=== PATIENT | male | born 2000 | race Caucasian/White ===

== ENCOUNTER → 2020-09-11 | Outpatient (CLI) | payer BC ==
[~2020-09-11] MED LIST: ACHD5005 PO; METH20TA36 PO
--- NOTE | 2020-09-11 14:16 | Diagnostic Imaging Report ---
PROCEDURE: CT maxillofacial without contrast. TECHNIQUE: Multiple contiguous axial images were obtained through the facial bones without the use of intravenous contrast. Auto Exposure Controls were utilized during the CT exam to meet ALARA standards for radiation dose reduction. INDICATION: Facial injuries. FINDINGS: There is mildly angulated and mildly displaced fracture involving the left nasal bone with probable nondisplaced right nasal bone fracture. No other definite fracture or malalignment is identified. Temporomandibular joints are intact. There is no paranasal sinus air-fluid level. Globes are intact and there is no evidence of retrobulbar hematoma. Mastoid air cells are clear. IMPRESSION: Nasal bone fractures with mild displacement on the left. Otherwise, no acute maxillofacial abnormality is identified. Dictated by: Dictated on workstation # [id number]
--- NOTE | 2020-09-11 14:16 | Diagnostic Imaging Report ---
PROCEDURE: CT cervical spine without contrast. TECHNIQUE: Multiple contiguous axial images were obtained through the cervical spine without the use of intravenous contrast. Sagittal and coronal reformations were then performed. Auto Exposure Controls were utilized during the CT exam to meet ALARA standards for radiation dose reduction. INDICATION: Facial injuries CT CERVICAL SPINE: Multiple contiguous axial CT images of the cervical spine were obtained with sagittal and coronal reformatted images produced. FINDINGS: There is loss of normal cervical lordosis. Vertebral body heights and disc spaces are maintained. Prevertebral soft tissues are unremarkable, and there is no evidence of paraspinous hematoma. IMPRESSION: Loss of normal cervical lordosis which may be due to positioning or muscle spasm. There is, otherwise, no CT evidence of acute cervical spinal abnormality. Dictated by: Dictated on workstation # [id number]
== END ==
LOC: RAD FS 13:35
PROVIDERS: ATTEND Nurse Practitioner Family
DX: S02.2XXA Fracture of nasal bones, initial encounter for closed fracture (principal); X58.XXXA Exposure to other specified factors, initial encounter
CPT/HCPCS: 70486; 72125

== ENCOUNTER 2020-09-12 05:39 | Outpatient (RCR) | payer BC ==
[~2020-09-12] VITALS: Ht 180.3 cm; Wt 84.1 kg
[2020-09-12] MEDS ORDERED: METH20TA36 PO (09:55)
[2020-09-13] MEDS ORDERED: ACHD5005 PO (07:58)
== END 2020-09-12 10:23 | disposition home or self-care (01) ==
LOC: PREOP 05:39
PROVIDERS: ATTEND Otolaryngology Otolaryngology/Facial Plastic Surgery
DX: Z01.818 Encounter for other preprocedural examination (principal)

== ENCOUNTER 2020-09-13 05:57 | Day surgery (SDC) | payer BC ==
[~2020-09-13] VITALS: Ht 180 cm; Wt 84.1 kg
[2020-09-13] VITALS (10 sets, daily range): BP systolic 103–132; BP diastolic 53–71
[~2020-09-13 05:57] MED LIST changes: -ACHD5005 PO
[2020-09-13] MEDS ORDERED: LACTATED RINGERS 1,000 ML IV PRN (06:30)
[2020-09-13] MEDS ORDERED: fentaNYL INJECTION 100 MCG/2 ML AMP ONE (06:40)
[2020-09-13] MEDS ORDERED: MIDAZOLAM 2 MG/2 ML (VERSED) VIAL ONE (06:40)
[2020-09-13] MEDS ORDERED: proPOfol 200 MG/20 ML (DIPRIVAN) VIAL IV ONE (06:40)
[2020-09-13] MEDS ORDERED: LIDOCAINE PF 2% 5 ML (XYLOCAINE) VIAL ONE (06:40)
[2020-09-13] MEDS ORDERED: ONDANSETRON 4 MG/2 ML (SDV) Z0FRAN ONE (06:40)
[2020-09-13] MEDS ORDERED: SEVOFLURANE (ULTANE) 15 ML INHAL SOLN ONE (06:44)
[2020-09-13] MEDS ORDERED: COCAINE HCL 4% 2 ML SYR ONE (06:46)
[2020-09-13] MEDS ORDERED: MUPIROCIN 2% OINT 22 GM (BACTROBAN) TUBE ONE (06:47)
[2020-09-13] MEDS ORDERED: LIDOCAINE/EPI 1%-1:200,000 (XYLOCAINE) 10 ML VIAL ONE (06:47)
[2020-09-13] MEDS ORDERED: PHENYLEPHRINE 0.5% NASAL SPR (NEO-SYNEPHRINE) REG ONE (06:47)
--- NOTE | 2020-09-13 06:58 | Progress Note-Pre Operative ---
Pre-Operative Progress Note H&P Reviewed The H&P was reviewed, patient examined and no changes noted. Date Seen by Provider: Sep 13, 2020 Time Seen by Provider: 06:30 Date H&P Reviewed: Sep 13, 2020 Time H&P Reviewed: 06:30 Pre-Operative Diagnosis: Displaced Nasal Fracture JAD FIORE MD Sep 13, 2020 06:57
[2020-09-13] MEDS ORDERED: ONDANSETRON 4 MG/2 ML (SDV) Z0FRAN IVP PRN (07:30)
[2020-09-13] MEDS ORDERED: fentaNYL INJECTION 100 MCG/2 ML AMP IVP ONE (07:30)
[2020-09-13] MEDS ORDERED: morphine INJ 10 MG/ML 1ML (SYR OR VIAL) IVP ONE (07:30)
--- NOTE | 2020-09-13 07:32 | Progress Note-Post Operative ---
Post-Operative Progess Note Surgeon (s)/Senior Solutions Consultant (s) Surgeon JAD FIORE MD Senior Solutions Consultant n/a Pre-Operative Diagnosis Displaced Nasal Fracture Post-Operative Diagnosis same Post-Op Procedure Note Date of Procedure: Sep 13, 2020 Name of Procedure Performed: Closed Reduction of Nasal Fracture Description & Findings Description and Findings: n/a Anesthesia Type lma Estimated Blood Loss minimal Packing none. Specimen(s) collected/removed none JAD FIORE MD Sep 13, 2020 07:32
[2020-09-13] MEDS ORDERED: HYDROcodone/APAP 5 MG/325 MG (LORTAB) TAB PO PRN (07:45)
[2020-09-13] MEDS ORDERED: ACETAMINOPHEN 325 MG TABLET PO PRN (07:45)
[2020-09-13] MEDS ORDERED: ACHD5005 PO (07:58)
--- NOTE | 2020-09-13 08:31 | Anesthesia-General Post-Op ---
General Patient Condition Mental Status/LOC: Same as Preop Cardiovascular: Satisfactory Nausea/Vomiting: Absent Respiratory: Satisfactory Pain: Controlled Complications: Absent Post Op Complications Complications None Follow Up Care/Instructions Patient Instructions None needed. Anesthesia/Patient Condition Patient Condition Patient is doing well, no complaints, stable vital signs, no apparent adverse anesthesia problems. No complications reported per nursing. BRYN EATON CRNA Sep 13, 2020 08:31
== END 2020-09-13 09:15 | disposition home or self-care (01) ==
LOC: SDC 05:57
PROVIDERS: ATTEND Otolaryngology Otolaryngology/Facial Plastic Surgery
DX: S02.2XXA Fracture of nasal bones, initial encounter for closed fracture (principal); Z20.822 Contact with and (suspected) exposure to COVID-19; Z79.1 Long term (current) use of non-steroidal anti-inflammatories (NSAID); Z79.899 Other long term (current) drug therapy; Z83.3 Family history of diabetes mellitus; Y04.2XXA Assault by strike against or bumped into by another person, initial encounter
CPT/HCPCS: 21320; 87081; U0002; 87635

== ENCOUNTER 2021-12-09 01:13 | Observation (INO) | payer BC ==
[~2021-12-09] VITALS: Ht 180 cm; Wt 91.4 kg
[~2021-12-09 01:13] MED LIST changes: +ACHD5005 PO
[2021-12-09] MEDS ORDERED: CHARCOAL/AQUEOUS 50 GM/240 ML BTL PO STA (01:32)
[2021-12-09] MEDS ORDERED: NS IV 1000 ML 1,000 ML IV STA (01:32)
--- NOTE | 2021-12-09 01:38 | ED General ---
General Chief Complaint: Overdose Stated Complaint: DRUG OVERDOSE Nursing Triage Note: pt repots taking his bottle of concert 54mg on accident. reports he belived the bottle had his vitamins in it and he was in the dark when he took the medication. reports there were between 10-20 pills of the 54mg concerta in the bottle. denies any symptoms at this time. reports they were taken just minutes before arrival as he rushed in as soon as he realized. Source of Information: Patient, Other (girlfriend) History of Present Illness Date Seen by Provider: December 09, 2021 Time Seen by Provider: 01:18 Initial Comments 21-year-old male presenting with complaints of an accidental overdose. He states that he was camping with his girlfriend and it was dark out. He normally at night takes a bottle of vitamins however tonight he grabbed a bottle of Co ncerta by accident. After he had taken them he realized that he had taken the wrong pills. He became very anxious and worried and upset about it. He tried to make himself throw up and they immediately started driving here to the emergency department. He took the pills around 1 AM. He thinks he took from 10-20 of the 54 mg Concerta pills. He adamantly denies any suicidal ideation or suicide attempt. His girlfriend is with him and states that he does take a bottle of vitamins every night and it was pitch black outside so they could not see which bottle of pills he was getting. Timing/Duration: 1/2 Hour Severity: Mild Associated Systoms: No Chest Pain, No Cough, No Diaphoresis, No Fever/Chills, No Headaches, No Loss of Appetite, No Malaise, No Nausea/Vomiting, No Rash, No Seizure, No Shortness of Air, No Syncope, No Weakness Allergies and Home Medications Allergies Coded Allergies: No Known Drug Allergies (Unverified , 09/12/20) Patient Home Medication List Home Medication List Reviewed: Yes Methylphenidate HCl (Concerta) 54 Mg Tab.er.24, 54 MG PO DAILY, (Reported) Entered as Reported by: VIRGINIA RODGERS on 12/09/21 0149 Last Action: Edited Discontinued Medications Hydrocodone/Acetaminophen (Hydrocodone-Acetamin 5-325 mg) 1 Each Tablet, 1-2 TAB PO Q4H PRN for PAIN-MODERATE (5-7) Discontinued Reason: Referral/FU Appt-Addtl Prescribed by: CARLYLE TURNER on 09/13/20 0758 Last Action: Discontinued Methylphenidate HCl (Methylphenidate ER) Unknown Strength Tablet.er, 1 TAB PO DAILY, (Reported) Discontinued Reason: Referral/FU Appt-Addtl Entered as Reported by: LUIS CARLOS PERSON on 09/12/20 0955 Last Action: Discontinued Review of Systems Review of Systems Constitutional: No chills, No fever EENTM: no symptoms reported Respiratory: no symptoms reported Cardiovascular: no symptoms reported Gastrointestinal: no symptoms reported Genitourinary: no symptoms reported Musculoskeletal: no symptoms reported Skin: no symptoms reported Psychiatric/Neurological: Anxiety (worried about taking the pills) Hematologic/Lymphatic: No Symptoms Reported Immunological/Allergic: no symptoms reported Past Htbltnn-Rqafei-Wnyjun Hx Patient Social History Tobacco Use?: No Substance use?: No Alcohol Use?: Yes Alcohol Frequency: Once in a while Immunizations Up To Date Influenza Vaccine Up-to-Date: No; Not Current First/Initial COVID19 Vaccinat: unknown date Second COVID19 Vaccination Ariel: unknown date COVID19 Vaccine Community Advocate: [employer] Seasonal Allergies Seasonal Allergies: No Past Medical History Surgery/Hospitalization HX: ADHD Surgeries: No Respiratory: No Cardiac: No Neurological: No Genitourinary: No Gastrointestinal: No Musculoskeletal: Yes Fractures Endocrine: No HEENT: Yes (nasal fx) Cancer: No Psychosocial: No Integumentary: No Blood Disorders: No Physical Exam Vital Signs Vital Signs - First Documented 12/09/21 01:28 Temp 36.4 Pulse 78 Resp 18 B/P (MAP) 155/85 (108) Pulse Ox 99 O2 Delivery Room Air Capillary Refill : Height, Weight, BMI Height: '" Weight: lbs. oz. kg; 28.00 BMI Method: General Appearance: WD/WN, Anxious HEENT: PERRL/EOMI, Pharynx Normal Neck: Full Range of Motion, Normal Inspection, Non Tender, Supple Respiratory: Chest Non Tender, Lungs Clear, Normal Breath Sounds, No Accessory Muscle Use, No Respiratory Distress Cardiovascular: Regular Rate, Rhythm, No Edema, No Gallop, No JVD, No Murmur, Normal Peripheral Pulses Gastrointestinal: Normal Bowel Sounds, No Pulsatile Mass, Non Tender, Soft Rectal: Deferred Extremity: Normal Capillary Refill, Normal Inspection, No Calf Tenderness, No Pedal Edema Neurologic/Psychiatric: Alert, Oriented x3, manager maritime II-XII Norm as Tested, Other (anxious) Skin: Normal Color, Warm/Dry Progress/Results/Core Measures Suspected Sepsis SIRS Temperature: Pulse: 78 Respiratory Rate: 18 Laboratory Tests 12/09/21 01:28: White Blood Count 11.2H Blood Pressure 155 /85 Mean: 108 Laboratory Tests 12/09/21 01:28: Creatinine 1.30, Platelet Count 301, Total Bilirubin 0.4 Results/Orders Lab Results Laboratory Tests Test 12/09/21 01:28 12/09/21 01:30 Range/Units White Blood Count 11.2 H 4.3-11.0 10^3/uL Red Blood Count 5.04 4.30-5.52 10^6/uL Hemoglobin 15.5 13.3-17.7 g/dL Hematocrit 45 40-54 % Mean Corpuscular Volume 89 80-99 fL Mean Corpuscular Hemoglobin 31 25-34 pg Mean Corpuscular Hemoglobin Concent 35 32-36 g/dL Red Cell Distribution Width 13.4 10.0-14.5 % Platelet Count 301 130-400 10^3/uL Mean Platelet Volume 11.3 9.0-12.2 fL Immature Granulocyte % (Auto) 0 % Neutrophils (%) (Auto) 52 42-75 % Lymphocytes (%) (Auto) 37 12-44 % Monocytes (%) (Auto) 7 0-12 % Eosinophils (%) (Auto) 4 0-10 % Basophils (%) (Auto) 1 0-10 % Neutrophils # (Auto) 5.8 1.8-7.8 10^3/uL Lymphocytes # (Auto) 4.1 H 1.0-4.0 10^3/uL Monocytes # (Auto) 0.8 0.0-1.0 10^3/uL Eosinophils # (Auto) 0.4 H 0.0-0.3 10^3/uL Basophils # (Auto) 0.1 0.0-0.1 10^3/uL Immature Granulocyte # (Auto) 0.0 0.0-0.1 10^3/uL Sodium Level 139 135-145 MMOL/L Potassium Level 3.3 L 3.6-5.0 MMOL/L Chloride Level 102 98-107 MMOL/L Carbon Dioxide Level 25 21-32 MMOL/L Anion Gap 12 5-14 MMOL/L Blood Urea Nitrogen 23 H 7-18 MG/DL Creatinine 1.30 0.60-1.30 MG/DL Estimat Glomerular Filtration Rate 79 BUN/Creatinine Ratio 18 Glucose Level 96 70-105 MG/DL Calcium Level 9.3 8.5-10.1 MG/DL Corrected Calcium 8.5-10.1 MG/DL Total Bilirubin 0.4 0.1-1.0 MG/DL Aspartate Amino Transf (AST/SGOT) 33 5-34 U/L Alanine Aminotransferase (ALT/SGPT) 30 0-55 U/L Alkaline Phosphatase 65 40-136 U/L Myoglobin 139.9 H 10.0-92.0 NG/ML Total Protein 7.4 6.4-8.2 GM/DL Albumin 5.1 H 3.2-4.5 GM/DL Salicylates Level < 0.3 L 5.0-20.0 MG/DL Acetaminophen Level < 10 L 10-30 UG/ML Serum Alcohol < 10 <10 MG/DL Urine Color YELLOW Urine Clarity CLEAR Urine pH 6.0 5-9 Urine Specific [place] 1.020 1.016-1.022 Urine Protein NEGATIVE NEGATIVE Urine Glucose (UA) NEGATIVE NEGATIVE Urine Ketones NEGATIVE NEGATIVE Urine Nitrite NEGATIVE NEGATIVE Urine Bilirubin NEGATIVE NEGATIVE Urine Urobilinogen 0.2 < = 1.0 MG/DL Urine Leukocyte Esterase NEGATIVE NEGATIVE Urine RBC (Auto) NEGATIVE NEGATIVE Urine RBC 5-10 H /HPF Urine WBC 0-2 /HPF Urine Crystals NONE /LPF Urine Bacteria NEGATIVE /HPF Urine Casts NONE /LPF Urine Mucus NEGATIVE /LPF Urine Culture Indicated NO Urine Opiates Screen NEGATIVE NEGATIVE Urine Oxycodone Screen NEGATIVE NEGATIVE Urine Methadone Screen NEGATIVE NEGATIVE Urine Propoxyphene Screen NEGATIVE NEGATIVE Urine Barbiturates Screen NEGATIVE NEGATIVE Ur Tricyclic Antidepressants Screen NEGATIVE NEGATIVE Urine Phencyclidine Screen NEGATIVE NEGATIVE Urine Amphetamines Screen NEGATIVE NEGATIVE Urine Methamphetamines Screen NEGATIVE NEGATIVE Urine Benzodiazepines Screen NEGATIVE NEGATIVE Urine Cocaine Screen NEGATIVE NEGATIVE Urine Cannabinoids Screen NEGATIVE NEGATIVE My Orders Orders - GREGG VIEIRA MD Ua Culture If Indicated (12/09/21 01:24) Cbc With Automated Diff (12/09/21 01:24) Comprehensive Metabolic Panel (12/09/21 01:24) Alcohol (12/09/21 01:24) Drug Screen Stat (Urine) (12/09/21 01:24) Acetaminophen (12/09/21 01:24) Salicylate (12/09/21 01:24) Ekg Tracing (12/09/21 01:24) Ed Iv/Invasive Line Start (12/09/21 01:24) Monitor-Rhythm Ecg Trace Only (12/09/21 01:24) Myoglobin Serum (12/09/21 01:29) Ns Iv 1000 Ml (Sodium Chloride 0.9%) (12/09/21 01:32) Charcoal Activated Aqueous (Actidose Aqu (12/09/21 01:32) Creatine Kinase (12/09/21 01:28) Creatine Kinase Mb (12/09/21 01:28) Vital Signs/I&O 12/09/21 12/09/21 12/09/21 01:28 01:50 02:02 Temp 36.4 Pulse 78 75 70 Resp 18 16 16 B/P (MAP) 155/85 (108) 150/90 150/76 Pulse Ox 99 99 98 O2 Delivery Room Air Room Air Room Air Capillary Refill : Blood Pressure Mean: 108 Progress Note #1: Progress Note Order basic labs and urine as well as drug screen and alcohol salicylate and acetaminophen levels. Contact poison control and discussed with them about the overdose. Obtain electrocardiogram and placed on cardiac telemetry monitoring Progress Note #2: Progress Note 0123 discussed with poison control and they advised that patient would need at least 10 to 12 hours of monitoring since the medicine was extended release. He would need to be monitored for possible seizure activity or INSPECTOR AND SORTER depression. Also he could develop rhabdomyolysis. Monitoring for cardiac arrhythmia. 0146 after obtaining the patient and advising him that he would need to be admitted to the hospital for monitoring longer than what can be done here in the emergency department he was agreeable to that. He also stated that he follows with nurse practitioner Giovanni from the [facility] clinic. Discussed with Dr. Larson on the following observation admission. She accepted the patient for the cardiac stepdown unit. Notified the nursing supervisor transcribing operators who will obtain a bed and placed on the track board. Progress Note #3: Progress Note 0212 labs show stable CBC with white blood cell count of 11.2. He has no acute significant normality on his chemistry panel other than mild elevation of his myoglobin to 139.9. The upper limit of normal is 92. He has negative urine drug screen. His alcohol, salicylate, acetaminophen levels are negative. Urinalysis showed 5-10 red blood cells. ECG Initial ECG Impression Date: December 09, 2021 Initial ECG Impression Time: 01:30 Initial ECG Rate: 70 Initial ECG Rhythm: Normal Sinus Initial ECG Comparisson: No Previous ECG Available Comment Normal sinus rhythm with a heart rate of 70 bpm. IA interval [address] elevation. QT interval 359 ms with a QTc interval 379 ms. QRS duration of 101 ms. No prior tracing available for comparison. Departure Communication (Admissions) Time/Spoke to Admitting Phy: 01:[address] Larson for the [facility]. She accepted the observation admit for overdose patient. Per poison control patient need to be monitored for 10 to 12 hours with the extended release Concerta overdose. He should be monitored for INSPECTOR AND SORTER depression or stimulation such as seizures. Also if he has arrhythmias with overstimulation from the methylphenidate. Agitation may result so as needed Ativan will be ordered. Continue fluids and check for CK CK-MB and myoglobin in case he starts to develop rhabdomyolysis Impression Primary Impression: Accidental overdose Qualified Codes: T50.901A - Poisoning by unspecified drugs, medicaments and biological substances, accidental (unintentional), initial encounter Disposition: 30 STILL A PATIENT Condition: Stable Admissions Decision to Admit Reason: Admit from ER (General) Decision to Admit/Date: December 09, 2021 Time/Decision to Admit Time: 01:46 Departure-Patient Inst. Referrals: NO,LOCAL PHYSICIAN (PCP) Primary Care Physician OVIDIO CASTILLO APRN (Family) Primary Care Physician Patient Instructions: ALCOHOL AND SUBSTANCE ABUSE GREGG VIEIRA MD December 09, 2021 01:38
[2021-12-09 01:49] LABS: BASOPHILS # (AUTO) 0.1 10^3/uL (0.0-0.1); BASOPHILS % (AUTO) 1 % (0-10); EOSINOPHILS # (AUTO) 0.4 10^3/uL (0.0-0.3); EOSINOPHILS % (AUTO) 4 % (0-10); HEMATOCRIT 45 % (40-54); HEMOGLOBIN 15.5 g/dL (13.3-17.7); LYMPHOCYTES # (AUTO) 4.1 10^3/uL (1.0-4.0); LYMPHOCYTES % (AUTO) 37 % (12-44); MEAN CORPUSCULAR HEMOGLOBIN 31 pg (25-34); MEAN CORPUSCULAR HGB CONC 35 g/dL (32-36); MEAN CORPUSCULAR VOLUME 89 fL (80-99); MEAN PLATELET VOLUME 11.3 fL (9.0-12.2); MONOCYTES # (AUTO) 0.8 10^3/uL (0.0-1.0); MONOCYTES % (AUTO) 7 % (0-12); NEUTROPHILS # (AUTO) 5.8 10^3/uL (1.8-7.8); NEUTROPHILS % (AUTO) 52 % (42-75); PLATELET COUNT 301 10^3/uL (130-400); WHITE BLOOD COUNT 11.2 10^3/uL (4.3-11.0)
[2021-12-09] MEDS ORDERED: METH54TA4 PO (01:49)
[2021-12-09 01:52] LABS: BILIRUBIN,URINE NEGATIVE (NEGATIVE); CLARITY,URINE CLEAR; COLOR,URINE YELLOW; GLUCOSE, URINE (UA) NEGATIVE (NEGATIVE); KETONES,URINE NEGATIVE (NEGATIVE); LEUKOCYTE ESTERASE ,URINE NEGATIVE (NEGATIVE); NITRITE,URINE NEGATIVE (NEGATIVE); PROTEIN,URINE NEGATIVE (NEGATIVE)
[2021-12-09 01:55] LABS: BACTERIA,URINE NEGATIVE /HPF; WBC,URINE 0-2 /HPF
[2021-12-09 02:03] LABS: AMPHETAMINE SCREEN, URINE NEGATIVE (NEGATIVE); BARBITURATE SCREEN URINE NEGATIVE (NEGATIVE); BENZODIAZEPINES SCREEN URINE NEGATIVE (NEGATIVE); CANNABINOID SCREEN, URINE NEGATIVE (NEGATIVE); COCAINE SCREEN URINE NEGATIVE (NEGATIVE); METHADONE STAT NEGATIVE (NEGATIVE); OPIATE SCREEN URINE NEGATIVE (NEGATIVE); OXYCODONE STAT NEGATIVE (NEGATIVE); PROPOXYPHENE STAT NEGATIVE (NEGATIVE); TRICYCLIC ANTIDEPRESSANTS SCRE NEGATIVE (NEGATIVE)
[2021-12-09 02:10] LABS: ACETAMINOPHEN < 10 UG/ML (10-30); ALANINE AMINOTRANSFERASE 30 U/L (0-55); ALBUMIN 5.1 GM/DL (3.2-4.5); ALKALINE PHOSPHATASE 65 U/L (40-136); BILIRUBIN,TOTAL 0.4 MG/DL (0.1-1.0); BUN/CREATININE RATIO 18; CALCIUM 9.3 MG/DL (8.5-10.1); CARBON DIOXIDE 25 MMOL/L (21-32); CHLORIDE 102 MMOL/L (98-107); GFR ESTIMATED 79; GLUCOSE 96 MG/DL (70-105); POTASSIUM 3.3 MMOL/L (3.6-5.0); SALICYLATE < 0.3 MG/DL (5.0-20.0); SODIUM 139 MMOL/L (135-145); TOTAL PROTEIN 7.4 GM/DL (6.4-8.2)
[2021-12-09 03:07] VITALS: BP 142/88
[2021-12-09] MEDS ORDERED: PREG100C55 PO (03:19)
[2021-12-09 03:35] LABS: CREATINE KINASE MB 5.4 NG/ML (<6.6)
[2021-12-09] MEDS ORDERED: LORazepam INJ 2 MG/ML (ATIVAN) VIAL IV PRN (03:45)
[2021-12-09] MEDS: NS IV 1000 ML 1,000 ML IV SCH ×2 (03:56→11:52)
[2021-12-09 04:25] VITALS: BP 132/81
[2021-12-09 06:18] LABS: BASOPHILS # (AUTO) 0.1 10^3/uL (0.0-0.1); BASOPHILS % (AUTO) 1 % (0-10); EOSINOPHILS # (AUTO) 0.1 10^3/uL (0.0-0.3); EOSINOPHILS % (AUTO) 2 % (0-10); HEMATOCRIT 45 % (40-54); HEMOGLOBIN 15.1 g/dL (13.3-17.7); LYMPHOCYTES # (AUTO) 1.5 10^3/uL (1.0-4.0); LYMPHOCYTES % (AUTO) 23 % (12-44); MEAN CORPUSCULAR HEMOGLOBIN 30 pg (25-34); MEAN CORPUSCULAR HGB CONC 34 g/dL (32-36); MEAN CORPUSCULAR VOLUME 89 fL (80-99); MEAN PLATELET VOLUME 11.5 fL (9.0-12.2); MONOCYTES # (AUTO) 0.4 10^3/uL (0.0-1.0); MONOCYTES % (AUTO) 6 % (0-12); NEUTROPHILS # (AUTO) 4.6 10^3/uL (1.8-7.8); NEUTROPHILS % (AUTO) 69 % (42-75); PLATELET COUNT 278 10^3/uL (130-400); WHITE BLOOD COUNT 6.7 10^3/uL (4.3-11.0)
[2021-12-09 06:34] LABS: POTASSIUM 4.2 MMOL/L (3.6-5.0)
[2021-12-09 06:35] LABS: CALCIUM 9.3 MG/DL (8.5-10.1)
[2021-12-09 06:40] LABS: CREATININE SERUM 1.16 MG/DL (0.60-1.30)
[2021-12-09 06:53] LABS: CREATINE KINASE MB 4.3 NG/ML (<6.6)
--- NOTE | 2021-12-09 07:17 | Short Stay Summary-Hospitalist ---
History of Present Illness HPI/Chief Complaint CC: Accidental OD on Concerta HPI: This is a 21yoWM clinic patient of [facility] who presents from [facility] after he accidentally took 15 pills of his Rx Concerta by mistake. He takes a lot of vitamins and supplements including creatine and he was camping outside his parent's house when he reached for his vitamins and swallowed 15 pills and after he swallowed he realized they were Concerta and not vitamins. He tried to purge but unable to vomit so He came to the hospital and Poison Control notified and recommended Tely and monitoring labs including CPK. He is with his girlfriend whom collaborates his story and this was not a purposeful OD. Denies any SI. Source: patient, family Date Seen 12/09/21 Time Seen by a Provider: 10:00 Attending Physician Shannon Palencia Aprn PCP Admitting Physician: Val Larson DO Attending Physician: Val Larson DO Referring Physician Date of Admission December 09, 2021 at 03:01 Home Medications & Allergies Home Medications Reviewed patient Home Medication Reconciliation performed by pharmacy medication reconciliations anaesthetic technician and/or nursing. Patients Allergies have been reviewed. Allergies Allergies Coded Allergies No Known Drug Allergies (Unverified09/12/20) Past Ffbdudt-Jheldj-Nwheao Hx Patient Social History Marrital Status: cohabiting Tobacco Use?: Yes Tobacco type used: Cigarettes Smoking Status: Former Smoker Smokeless Tobacco Frequency: Never a User Use of E-Cig and/or Vaping dev: No Substance use?: No Alcohol Use?: Yes Alcohol type: Other Alcohol Frequency: Once in a while Pt feels they are or have been: No Immunizations Up To Date First/Initial COVID19 Vaccinat: unknown date Second COVID19 Vaccination Ariel: unknown date Tetanus Booster (TDap): Unknown Seasonal Allergies Seasonal Allergies: No Current Status Advance Directives: No Communicates: Verbally Primary Language: Indian Preferred Spoken Language: Indian Is interpretation needed?: No Implanted or Applied Medical D: None Past Medical History Fractures ADD/ADHD Blood Disorders: No Review of Systems Constitutional: see HPI Physical Exam Physical Exam Vital Signs Vital Signs - First Documented 12/09/21 01:28 Temp 36.4 Pulse 78 Resp 18 B/P (MAP) 155/85 (108) Pulse Ox 99 O2 Delivery Room Air Capillary Refill : Height, Weight, BMI Height: '" Weight: lbs. oz. kg; 28.20 BMI Method: General Appearance: WD/WN, Anxious HEENT: PERRL/EOMI, Pharynx Normal Neck: Full Range of Motion, Normal Inspection, Non Tender, Supple Respiratory: Chest Non Tender, Lungs Clear, Normal Breath Sounds, No Accessory Muscle Use, No Respiratory Distress Cardiovascular: Regular Rate, Rhythm, No Edema, No Gallop, No JVD, No Murmur, Normal Peripheral Pulses Gastrointestinal: Normal Bowel Sounds, No Pulsatile Mass, Non Tender, Soft Rectal: Deferred Extremity: Normal Capillary Refill, Normal Inspection, No Calf Tenderness, No Pedal Edema Neurologic/Psychiatric: Alert, Oriented x3, limo driver II-XII Norm as Tested, Other (anxious) Skin: Normal Color, Warm/Dry Results Results/Procedures Labs Laboratory Tests 12/09/21 01:28 12/09/21 05:19 Patient resulted labs reviewed. Short Stay Diagnosis Discharge Diagnosis-Short Stay Admission Diagnosis Accidental OD with Concerta #15 pills ADHD Final Discharge Diagnosis Accidental OD on Concerta ADHD Conclusion Plan Repeat EKG's and CPK stable DC home Diagnosis/Problems Diagnosis/Problems (1) Accidental overdose Status: Acute Qualifiers: Qualified Codes: T50.901A - Poisoning by unspecified drugs, medicaments and biological substances, accidental (unintentional), initial encounter VAL LARSON DO December 09, 2021 07:17
[2021-12-09 07:37] VITALS: BP 132/81
[2021-12-09 12:00] VITALS: BP_SYST 125; BP_SYST 136; BP_DIAS 74; BP_DIAS 83
[2021-12-09 12:11] VITALS: BP 136/83
== END 2021-12-09 12:12 | disposition home or self-care (01) ==
LOC: EDUNIT# 01:13 → ER FS 01:17 → CSD 03:01
PROVIDERS: ADMIT Internal Medicine; ATTEND Internal Medicine
DX: T43.631A Poisoning by methylphenidate, accidental (unintentional), initial encounter (principal); F90.9 Attention-deficit hyperactivity disorder, unspecified type
CPT/HCPCS: 36415; 80048; 80053; 80306; 80320; 80329; 81000; 82550; 82553; 83874; 85025; 93005; 93041; 96374

== ENCOUNTER 2022-02-09 19:10 | Emergency (ER) | payer BC ==
[~2022-02-09] VITALS: Ht 180 cm; Wt 86.2 kg
[~2022-02-09 19:10] MED LIST changes: +METH54TA4 PO; +PREG100C55 PO
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
--- NOTE | 2022-02-09 19:51 | Diagnostic Imaging Report ---
INDICATION: Right shoulder pain. FINDINGS: Glenohumeral joint relationships are appropriate. There is an AC joint separation without evidence of an acute fracture. Scapula is unremarkable. The visualized ribs appear normal. The right lung is clear without pneumothorax. IMPRESSION: AC joint separation without finding of an acute fracture. Glenohumeral joint relationships are appropriate. Dictated by: Dictated on workstation # [id number]
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
[2022-02-09] MEDS ORDERED: CYCL10TA25 PO (20:27)
[2022-02-09] MEDS ORDERED: ACHD5005 PO (20:27)
[2022-02-09 20:31] VITALS: BP 134/79
== END 2022-02-09 20:33 | disposition home or self-care (01) ==
LOC: EDUNIT# 19:10 → ER 19:11
DX: S43.101A Unspecified dislocation of right acromioclavicular joint, initial encounter (principal); M54.12 Radiculopathy, cervical region; V19.9XXA Pedal cyclist (driver) (passenger) injured in unspecified traffic accident, initial encounter
CPT/HCPCS: 70450; 72125; 73030